=== PATIENT | male | born 1985 | race Caucasian/White ===

== ENCOUNTER 2020-12-29 12:25 | Inpatient (IN) | payer MEDICAID ==
[~2020-12-29] VITALS: Ht 188 cm; Wt 118.1 kg
[2020-12-29 16:05] LABS: BASOPHILS % 1.3 % (0.0-2.0); EOSINOPHILS % 0.1 % (0.0-5.0); HEMATOCRIT. 43.6 % (42.0-52.0); HEMOGLOBIN. 15.1 g/dL (14.0-18.0); LYMPHOCYTES % 30.8 % (20.0-50.0); MEAN CORPUSCULAR HEMOGLOBIN 31.5 pg (28.0-32.0); MEAN CORPUSCULAR VOLUME 90.6 fL (80.0-94.0); MEAN PLATELET VOLUME 7.3 fl (7.4-10.4); MONOCYTES % 5.8 % (2.0-8.0); PLATELET 100 x1000/uL (130-400); RED BLOOD CELL COUNT 4.81 mill/uL (4.7-6.1); RED CELL DISTRIBUTION WIDTH 16.6 % (11.6-14.6)
[2020-12-29 16:08] LABS: CHLORIDE 101 mEq/L (98-107)
[2020-12-29] MEDS ORDERED: IBUPROFEN 400MG TABLET PO ONE (18:00)
[2020-12-29] MEDS ORDERED: ACETAMINOPHEN 325MG TABLET PO ONE (18:00)
[2020-12-29] MEDS ORDERED: CLONIDINE 0.1MG TABLET PO PRN (19:00)
[2020-12-29] MEDS ORDERED: MAGNESIUM/ALUMINUM HYDROXIDE/SIMETHICONE 30ML UDC PO PRN (19:00)
[2020-12-29] MEDS ORDERED: HYDROCODONE/ACETAMINOPHEN 5/325MG TABLET PO PRN (19:00)
[2020-12-29] MEDS ORDERED: ONDANSETRON HCL 4MG/2ML INJ IV PRN (19:00)
[2020-12-29] MEDS ORDERED: ACETAMINOPHEN 325MG TABLET PO PRN (19:00)
[2020-12-29] MEDS ORDERED: IOHEXOL-350 100 ML BOTTLE ONE (19:45)
[2020-12-29] MEDS: LISINOPRIL 20MG TABLET PO SCH ×2 (21:11→21:12)
[2020-12-29] MEDS: AMLODIPINE 10MG TABLET PO SCH (21:12)
[2020-12-29 23:00] VITALS: BP 150/93
[2020-12-30] VITALS: BP 150/93
[2020-12-30 04:00] VITALS: BP 148/84
[2020-12-30 07:30] LABS: BASOPHILS % 1.1 % (0.0-2.0); EOSINOPHILS % 0.8 % (0.0-5.0); HEMATOCRIT. 42.1 % (42.0-52.0); HEMOGLOBIN. 14.5 g/dL (14.0-18.0); MEAN CORPUSCULAR HEMOGLOBIN 30.9 pg (28.0-32.0); MEAN CORPUSCULAR VOLUME 89.8 fL (80.0-94.0); MEAN PLATELET VOLUME 8.2 fl (7.4-10.4); MONOCYTES % 9.4 % (2.0-8.0); NEUTROPHILS % 41.7 % (40.0-76.0); PLATELET 67 x1000/uL (130-400); RED BLOOD CELL COUNT 4.69 mill/uL (4.7-6.1); RED CELL DISTRIBUTION WIDTH 16.4 % (11.6-14.6)
[2020-12-30 07:39] LABS: CHLORIDE 102 mEq/L (98-107)
[2020-12-30 07:52] LABS: HDL CHOLESTEROL 67 mg/dL (40-59)
[2020-12-30 07:55] LABS: LDL CHOLESTEROL 153 mg/dL (5-100)
[2020-12-30 08:00] VITALS: BP 133/80
[2020-12-30] MEDS ORDERED: MORPHINE SULFATE 2 MG/ML CPJ (NOT FOR IM USE) IV PRN (08:30)
[2020-12-30] MEDS ORDERED: NALOXONE HCL 0.4MG/ML VIAL IV PRN (08:45)
[2020-12-30] MEDS: AMLODIPINE 10MG TABLET PO SCH (08:59)
[2020-12-30] MEDS: ASPIRIN 81MG EC TABLET PO SCH (09:00)
[2020-12-30] MEDS ORDERED: POTASSIUM CHLORIDE 20MEQ TABLET SR PO SCH (09:00)
[2020-12-30] MEDS: LISINOPRIL 20MG TABLET PO SCH (09:03)
[2020-12-30 12:00] VITALS: BP 140/86
[2020-12-30 14:23] LABS: CLARITY URINE CLEAR (CLEAR); COLOR URINE DARK YELLOW (YELLOW); KETONES URINE 4+ (NEGATIVE); LEUKOCYTE ESTERASE URINE 1+ (NEGATIVE); NITRITE URINE NEGATIVE (NEGATIVE); OCCULT BLOOD URINE NEGATIVE (NEGATIVE); PH URINE 7.5 (4.5-8.0); PROTEIN URINE 1+ (NEGATIVE)
[2020-12-30 14:49] LABS: PHENCYCLIDINE URINE SCREEN NEGATIVE (NEGATIVE)
[2020-12-30 14:50] LABS: *AMPHETAMINES SCREEN URINE NEGATIVE (NEGATIVE); *BARBITURATES SCREEN URINE NEGATIVE (NEGATIVE); *BENZODIAZEPINES SCREEN URINE NEGATIVE (NEGATIVE); *COCAINE SCREEN URINE NEGATIVE (NEGATIVE); CANNABINOID URINE SCREEN NEGATIVE (NEGATIVE); METHADONE URINE SCREEN NEGATIVE (NEGATIVE); OPIATES URINE SCREEN PRESUMTIVE POSITIVE (NEGATIVE)
[2020-12-30 16:00] VITALS: BP 141/90
[2020-12-30 20:00] VITALS: BP 119/80
[2020-12-30] MEDS ORDERED: METOPROLOL TARTRATE 25MG TABLET PO SCH (21:00)
[2020-12-30] MEDS: ATORVASTATIN CALCIUM 40MG TABLET PO SCH (21:04)
[2020-12-30] MEDS: CHLORDIAZEPOXIDE 5 MG CAPSULE PO SCH (21:05)
[2020-12-31] VITALS: BP 125/79
[2020-12-31 04:00] VITALS: BP 131/89
[2020-12-31] MEDS: CHLORDIAZEPOXIDE 5 MG CAPSULE PO SCH ×3 (05:09→21:26)
[2020-12-31 08:00] VITALS: BP 121/49
[2020-12-31] MEDS ORDERED: POTASSIUM CHLORIDE 20MEQ TABLET SR PO NR (09:00)
[2020-12-31] MEDS: AMLODIPINE 10MG TABLET PO SCH (09:56)
[2020-12-31] MEDS: LISINOPRIL 20MG TABLET PO SCH (09:56)
[2020-12-31] MEDS: METOPROLOL TARTRATE 25MG TABLET PO SCH ×2 (09:58→21:27)
[2020-12-31] MEDS: ASPIRIN 81MG EC TABLET PO SCH (09:59)
[2020-12-31 12:00] VITALS: BP 107/71
[2020-12-31 12:03] LABS: BASOPHILS % 0.6 % (0.0-2.0); EOSINOPHILS % 2.8 % (0.0-5.0); HEMATOCRIT. 43.5 % (42.0-52.0); HEMOGLOBIN. 15.3 g/dL (14.0-18.0); LYMPHOCYTES % 25.1 % (20.0-50.0); MEAN CORPUSCULAR HEMOGLOBIN 31.7 pg (28.0-32.0); MEAN CORPUSCULAR VOLUME 90.3 fL (80.0-94.0); MEAN PLATELET VOLUME 8.4 fl (7.4-10.4); MONOCYTES % 9.6 % (2.0-8.0); NEUTROPHILS % 61.9 % (40.0-76.0); PLATELET 61 x1000/uL (130-400); RED BLOOD CELL COUNT 4.82 mill/uL (4.7-6.1); RED CELL DISTRIBUTION WIDTH 15.6 % (11.6-14.6)
[2020-12-31 12:08] LABS: CHLORIDE 100 mEq/L (98-107)
[2020-12-31] MEDS ORDERED: MAGNESIUM 2 G PREMIX 50 ML IV SCH (14:30)
[2020-12-31 16:00] VITALS: BP 120/69
[2020-12-31 20:00] VITALS: BP 115/71
[2020-12-31] MEDS: ATORVASTATIN CALCIUM 40MG TABLET PO SCH (21:26)
[2021-01-01] VITALS: BP 113/80
[2021-01-01 04:00] VITALS: BP 105/71
[2021-01-01] MEDS: CHLORDIAZEPOXIDE 5 MG CAPSULE PO SCH (05:44)
[2021-01-01 06:07] LABS: BASOPHILS % 0.7 % (0.0-2.0); EOSINOPHILS % 2.1 % (0.0-5.0); HEMATOCRIT. 46.6 % (42.0-52.0); HEMOGLOBIN. 15.9 g/dL (14.0-18.0); LYMPHOCYTES % 27.8 % (20.0-50.0); MEAN CORPUSCULAR HEMOGLOBIN 31.4 pg (28.0-32.0); MEAN CORPUSCULAR VOLUME 92.1 fL (80.0-94.0); MEAN PLATELET VOLUME 8.6 fl (7.4-10.4); NEUTROPHILS % 63.4 % (40.0-76.0); PLATELET 51 x1000/uL (130-400); RED BLOOD CELL COUNT 5.06 mill/uL (4.7-6.1)
[2021-01-01 06:09] LABS: CHLORIDE 100 mEq/L (98-107)
[2021-01-01 06:32] LABS: LDL CHOLESTEROL 183 mg/dL (5-100)
[2021-01-01 06:33] LABS: HDL CHOLESTEROL 68 mg/dL (40-59)
[2021-01-01] MEDS ORDERED: POTASSIUM CHLORIDE 20MEQ TABLET SR PO SCH (07:00)
[2021-01-01 07:38] VITALS: BP 105/71
[2021-01-18] MEDS ORDERED: THIA100T72 PO (09:57)
== END 2021-01-01 07:55 | disposition home or self-care (01) | DRG 203 ==
LOC: ER 12:25 → 8WST 18:39 → EDBEDREQTM 18:48 → EDBEDREQ 18:48 → ENRESERV 20:32
PROVIDERS: ADMIT Hospitalist; ATTEND Hospitalist
DX: M94.0 Chondrocostal junction syndrome [Tietze] (principal); D69.6 Thrombocytopenia, unspecified; I25.10 Atherosclerotic heart disease of native coronary artery without angina pectoris; E78.5 Hyperlipidemia, unspecified; E87.6 Hypokalemia; F10.10 Alcohol abuse, uncomplicated; I10 Essential (primary) hypertension; R74.01 Elevation of levels of liver transaminase levels; Y90.9 Presence of alcohol in blood, level not specified; R73.03 Prediabetes; R77.8 Other specified abnormalities of plasma proteins; Z71.41 Alcohol abuse counseling and surveillance of alcoholic
CPT/HCPCS: 36415; 71045; 71275; 80048; 80053; 80061; 80076; 80305; 81003; 83735; 83880; 84484; 85025; 85379; 93005; 93306; 99285; J2270; J2405; J3475; Q9967

== ENCOUNTER 2021-02-09 20:34 | Emergency (ER) | payer MEDICAID ==
[~2021-02-09] VITALS: Ht 185.4 cm; Wt 114.0 kg
[~2021-02-09 20:34] MED LIST: THIA100T72 PO
[2021-02-09 23:42] VITALS: BP 148/96
[2021-02-09] MEDS: IBUPROFEN 600MG TABLET PO ONE (23:42)
[2021-02-10] MEDS ORDERED: IBUP-2028 MT (00:05)
== END 2021-02-10 00:32 | disposition home or self-care (01) ==
LOC: ER 20:34
DX: S93.401A Sprain of unspecified ligament of right ankle, initial encounter (principal); I10 Essential (primary) hypertension; X58.XXXA Exposure to other specified factors, initial encounter; Y93.89 Activity, other specified; Y92.89 Other specified places as the place of occurrence of the external cause; Y99.8 Other external cause status
CPT/HCPCS: 73560; 73590; 73610; 73630; 93971; 99284